=== PATIENT | male | born 1960 | race Hispanic/Latino ===

== ENCOUNTER 2017-05-29 07:36 | Emergency (ER) | payer MEDICAID ==
[2017-05-29] MEDS ORDERED: ACETAMINOPHEN EXTRA STRENGTH 500 MG TABLET ONE (08:05)
[2017-05-29 08:37] LABS: RAPID GROUP A STREP NEGATIVE (NEGATIVE)
== END 2017-05-29 10:35 | disposition home or self-care (01) ==
LOC: EDH 07:36
DX: J11.1 Influenza due to unidentified influenza virus with other respiratory manifestations (principal); M19.90 Unspecified osteoarthritis, unspecified site
CPT/HCPCS: 71046; 87804; 87880

== ENCOUNTER 2017-07-05 13:10 | Emergency (ER) | payer MEDICAID ==
[2017-07-05 13:36] LABS: EOSINOPHILS % (AUTO) 1.6 % (0.0-8.0); HEMATOCRIT 45.3 % (42-54); LYMPHOCYTES % (AUTO) 29.2 % (21.0-51.0); MEAN CORPUSCULAR HGB CONC 34.5 g/dL (32.0-36.0); MEAN CORPUSCULAR VOLUME 84.3 fL (79-99); MONOCYTES % (AUTO) 6.6 % (3.0-13.0); NEUTROPHILS % (AUTO) 61.6 % (40.0-77.0); NUCLEATED RED BLOOD CELLS 0.1 % (0.0-0.19); PLATELET COUNT (AUTO) 161 K/uL (130-400); RED BLOOD CELL COUNT(AUTO) 5.37 MIL/uL (4.50-6.20); RED CELL DISTRIBUTION WIDTH 14.1 % (11.0-15.5); WHITE BLOOD COUNT (AUTO) 6.3 K/uL (4.8-10.8)
[2017-07-05] MEDS ORDERED: IOPAMIDOL-370 75 ML VIAL IV ONE (13:47)
[2017-07-05 14:32] LABS: CARBON DIOXIDE 25 mmol/L (21-32); CHLORIDE 101 mmol/L (101-111); CREATININE 0.8 mg/dL (0.5-1.5); GLOMERULAR FILTR. RATE CALC 106 mL/min (>60); GLUCOSE,RANDOM 181 mg/dL (70-105); POTASSIUM 3.6 mmol/L (3.5-5.1); SODIUM SERUM 137 mmol/L (136-145); UREA NITROGEN, BLOOD 7 mg/dL (7-18)
[2017-07-05 14:45] LABS: ALANINE AMINOTRANSFERASE 51 U/L (12-78); ALBUMIN 3.8 g/dL (3.5-5.0); AMYLASE 31 U/L (25-115); ASPARTATE AMINOTRANSFERASE 23 U/L (10-37); BILIRUBIN,TOTAL 0.3 mg/dL (0.2-1.0); CREATINE KINASE MB < 0.5 ng/mL (0.5-3.6); CREATINE KINASE, TOTAL 120 U/L (21-232); LIPASE 95 U/L (114-286); TOTAL PROTEIN, SERUM 7.5 g/dL (6.0-8.3)
== END 2017-07-05 16:12 | disposition home or self-care (01) ==
LOC: EDH 13:10
DX: R10.84 Generalized abdominal pain (principal); R07.9 Chest pain, unspecified; R51 Headache; M19.90 Unspecified osteoarthritis, unspecified site
CPT/HCPCS: 36415; 70450; 71045; 74177; 80053; 82140; 82150; 82550; 82553; 83690; 84484; 85025; 93005; 99285; Q9967

== ENCOUNTER 2018-04-10 03:21 | Emergency (ER) | payer MEDICAID ==
[2018-04-10 04:57] LABS: BASOPHILS % (AUTO) 1.3 % (0.0-5.0); EOSINOPHILS % (AUTO) 2.4 % (0.0-8.0); HEMATOCRIT 45.4 % (42-54); LYMPHOCYTES % (AUTO) 38.4 % (21.0-51.0); MEAN CORPUSCULAR HEMOGLOBIN 30.3 pg (27.0-33.0); MEAN CORPUSCULAR HGB CONC 33.7 g/dL (32.0-36.0); MEAN CORPUSCULAR VOLUME 89.8 fL (79-99); MONOCYTES % (AUTO) 8.7 % (3.0-13.0); NEUTROPHILS % (AUTO) 49.2 % (40.0-77.0); NUCLEATED RED BLOOD CELLS 0.2 % (0.0-0.19); PLATELET COUNT (AUTO) 183 K/uL (130-400); RED BLOOD CELL COUNT(AUTO) 5.06 MIL/uL (4.50-6.20); RED CELL DISTRIBUTION WIDTH 15.9 % (11.0-15.5); WHITE BLOOD COUNT (AUTO) 4.9 K/uL (4.8-10.8)
[2018-04-10 05:01] LABS: CREATININE 0.5 mg/dL (0.5-1.5); POTASSIUM 3.3 mmol/L (3.5-5.1)
[2018-04-10 05:06] LABS: ALBUMIN 3.2 g/dL (3.5-5.0); BILIRUBIN,TOTAL 0.3 mg/dL (0.2-1.0); TOTAL PROTEIN, SERUM 7.3 g/dL (6.0-8.3)
== END 2018-04-10 07:27 | disposition home or self-care (01) ==
LOC: EDH 03:21
DX: R07.2 Precordial pain (principal); Z72.0 Tobacco use
CPT/HCPCS: 36415; 71045; 80053; 84484; 85025; 93005

== ENCOUNTER 2018-04-18 11:58 | Emergency (ER) | payer MEDICAID ==
[2018-04-18] MEDS ORDERED: ACETAMINOPHEN EXTRA STRENGTH 500 MG TABLET ONE (14:09)
== END 2018-04-18 14:36 | disposition home or self-care (01) ==
LOC: EDH 11:58
DX: S80.02XA Contusion of left knee, initial encounter (principal); J20.9 Acute bronchitis, unspecified; M19.90 Unspecified osteoarthritis, unspecified site; X58.XXXA Exposure to other specified factors, initial encounter; Y93.89 Activity, other specified; Y92.89 Other specified places as the place of occurrence of the external cause; Y99.8 Other external cause status
CPT/HCPCS: 71046; 73562; 93005

== ENCOUNTER 2018-10-19 08:53 | Observation (INO) | payer MEDICAID ==
[~2018-10-19] VITALS: Ht 165.1 cm; Wt 61.0 kg
[2018-10-19 09:14] LABS: BASOPHILS % (AUTO) 0.7 % (0.0-5.0); EOSINOPHILS % (AUTO) 0.2 % (0.0-8.0); HEMATOCRIT 45.4 % (42-54); LYMPHOCYTES % (AUTO) 10.3 % (21.0-51.0); MEAN CORPUSCULAR HEMOGLOBIN 32.7 pg (27.0-33.0); MEAN CORPUSCULAR HGB CONC 33.6 g/dL (32.0-36.0); MEAN CORPUSCULAR VOLUME 97.4 fL (79-99); MONOCYTES % (AUTO) 4.5 % (3.0-13.0); NEUTROPHILS % (AUTO) 84.3 % (40.0-77.0); PLATELET COUNT (AUTO) 206 K/uL (130-400); RED BLOOD CELL COUNT(AUTO) 4.66 MIL/uL (4.50-6.20); RED CELL DISTRIBUTION WIDTH 13.9 % (11.0-15.5); WHITE BLOOD COUNT (AUTO) 7.3 K/uL (4.8-10.8)
[2018-10-19 09:24] LABS: CREATININE 0.8 mg/dL (0.5-1.5); POTASSIUM 3.4 mmol/L (3.5-5.1)
[2018-10-19 09:44] LABS: ALBUMIN 3.5 g/dL (3.5-5.0); BILIRUBIN,TOTAL 0.4 mg/dL (0.2-1.0); TOTAL PROTEIN, SERUM 7.5 g/dL (6.0-8.3)
[2018-10-19] MEDS ORDERED: SODIUM CHLORIDE 0.9% 500ML 500 ML IV ONE (10:19)
[2018-10-19] MEDS ORDERED: ONDANSETRON HCL 4 MG/2 ML VIAL IVP PRN (12:45)
[2018-10-19] MEDS ORDERED: ACETAMINOPHEN 325 MG TAB PO PRN (12:45)
[2018-10-19] MEDS ORDERED: AMOXICILLIN/POTASSIUM CLAV 875-125 TABLET PO SCH (12:45)
[2018-10-19] MEDS ORDERED: NITROGLYCERIN 0.4 MG SL TAB SL PRN (12:45)
[2018-10-19] MEDS ORDERED: BENZONATATE 100 MG CAPSULE PO SCH (14:00)
[2018-10-19] MEDS ORDERED: BENZONATATE 100 MG CAPSULE PO PRN (14:00)
[2018-10-19 15:34] VITALS: BP 121/71
[2018-10-19] MEDS ORDERED: GABA600T10 PO (16:07)
[2018-10-19] MEDS ORDERED: TRAM50TA4 PO (16:07)
[2018-10-19] MEDS: SODIUM CHLORIDE 0.9% 1000ML 1,000 ML IV SCH (16:46)
[2018-10-19 17:59] LABS: CREATINE KINASE, TOTAL 97 U/L (21-232); MYOGLOBIN 28 ng/mL (10-92); TROPONIN I < 0.04 ng/mL (0.00-0.06)
[2018-10-19 19:59] VITALS: BP 122/67
[2018-10-19] MEDS: AMOXICILLIN/POTASSIUM CLAV 875-125 TABLET PO SCH (20:49)
[2018-10-19] MEDS: FAMOTIDINE 20MG TAB 20 MG TAB PO SCH (20:49)
[2018-10-19 23:01] VITALS: BP 114/65
[2018-10-20 01:31] LABS: CREATINE KINASE, TOTAL 81 U/L (21-232); MYOGLOBIN 26 ng/mL (10-92); POTASSIUM 3.4 mmol/L (3.5-5.1); TROPONIN I < 0.04 ng/mL (0.00-0.06)
[2018-10-20 01:32] LABS: CREATININE 0.7 mg/dL (0.5-1.5)
[2018-10-20 01:38] LABS: HEMOGLOBIN A1C 5.4 % (4.0-6.0)
[2018-10-20 03:46] VITALS: BP 123/77
[2018-10-20] MEDS: POTASSIUM CHLORIDE 20 MEQ ERTAB PO SCH ×2 (05:24→20:56)
[2018-10-20] MEDS: SODIUM CHLORIDE 0.9% 1000ML 1,000 ML IV SCH ×2 (06:04→17:44)
--- NOTE | 2018-10-20 06:50 | NUR ---
orders Cxr per Dr Manzanares (hospitalist) consult Dr Sanabria cardiology for possible LHC. Addendum: 10/20/18 at 0806 by PHU MULTANI RN RN Disregard Cardiology consult
[2018-10-20 07:49] VITALS: BP 133/82
[2018-10-20] MEDS ORDERED: POTASSIUM CHLORIDE 20 MEQ ERTAB PO SCH ×2 (09:00)
[2018-10-20] MEDS ORDERED: ENOXAPARIN SODIUM 30 MG/0.3 ML SQ SCH (09:00)
[2018-10-20] MEDS: AMOXICILLIN/POTASSIUM CLAV 875-125 TABLET PO SCH ×2 (11:00→20:56)
[2018-10-20] MEDS: FAMOTIDINE 20MG TAB 20 MG TAB PO SCH ×2 (11:00→20:56)
[2018-10-20 11:30] VITALS: BP 135/76
--- NOTE | 2018-10-20 11:41 | NUR ---
DC Sw met with pt who lives alone, mother Rosemary Kaufman [phone] and friend Elodia Steinberg [phone] are ER contacts. Pt has provider 2hrs a day thru [facility], attends [facility] daily,uses crutch. no services. denies dc needs, He is seen at [facility] by Dr Graff. plan is home with current services Addendum: 10/20/18 at 1144 by REJI OAKLEY SS Amended: Links added.
[2018-10-20 15:30] VITALS: BP 141/78
[2018-10-20 20:00] VITALS: BP 145/80
[2018-10-20] MEDS: MORPHINE SULFATE 4 MG/1ML SYG IV PRN (21:01)
[2018-10-20 23:52] VITALS: BP 144/79
[2018-10-21] MEDS: MORPHINE SULFATE 4 MG/1ML SYG IV PRN (01:01)
[2018-10-21] MEDS: SODIUM CHLORIDE 0.9% 1000ML 1,000 ML IV SCH (02:05)
[2018-10-21 03:36] VITALS: BP 130/75
[2018-10-21 03:55] LABS: BASOPHILS % (AUTO) 1.3 % (0.0-5.0); EOSINOPHILS % (AUTO) 2.3 % (0.0-8.0); HEMATOCRIT 42.7 % (42-54); LYMPHOCYTES % (AUTO) 35.6 % (21.0-51.0); MEAN CORPUSCULAR HGB CONC 34.8 g/dL (32.0-36.0); MEAN CORPUSCULAR VOLUME 94.8 fL (79-99); NEUTROPHILS % (AUTO) 52.8 % (40.0-77.0); PLATELET COUNT (AUTO) 225 K/uL (130-400); RED BLOOD CELL COUNT(AUTO) 4.51 MIL/uL (4.50-6.20); WHITE BLOOD COUNT (AUTO) 5.4 K/uL (4.8-10.8)
[2018-10-21 03:59] LABS: ALBUMIN 3.2 g/dL (3.5-5.0); BILIRUBIN,TOTAL 0.6 mg/dL (0.2-1.0); CREATININE 0.8 mg/dL (0.5-1.5); POTASSIUM 3.8 mmol/L (3.5-5.1); TOTAL PROTEIN, SERUM 6.9 g/dL (6.0-8.3)
[2018-10-21 07:18] VITALS: BP 136/84
--- NOTE | 2018-10-21 07:30 | NUR ---
ASSESSMENT ENCOUNTERED PT A&OX3, CALM COOPERATIVE AND DOES NOT APPEAR TO BE IN ANY DISTRESS NOR ANY NEURO DEFICITS PRESENT. PT DENIES PAIN, SOB, NAUSEA. PT IS AMBULATORY, GAIT STEADY AND STRONG WITH STAND BY ASSIST. CALL LIGHT WITHIN REACH.
[2018-10-21] MEDS: AMOXICILLIN/POTASSIUM CLAV 875-125 TABLET PO SCH (10:16)
[2018-10-21] MEDS: FAMOTIDINE 20MG TAB 20 MG TAB PO SCH (10:16)
--- NOTE | 2018-10-21 14:00 | NUR ---
DISCHARGE INSTRUCTIONS GIVEN, PIV REMOVED AND INTACT, DISCHARGED HOME TO FAMILY VEHICLE VIA WHEELCHAIR.
== END 2018-10-21 13:17 | disposition home or self-care (01) ==
LOC: EDH 08:53 → INTOOBSV 08:54 → EDHIP 08:54 → 2AH 14:36 → 2DH 14:45
PROVIDERS: ADMIT Family Medicine; ATTEND Family Medicine
DX: R07.89 Other chest pain (principal); E87.6 Hypokalemia; R11.0 Nausea; M19.90 Unspecified osteoarthritis, unspecified site; G89.29 Other chronic pain; M54.9 Dorsalgia, unspecified; Z87.891 Personal history of nicotine dependence; Z59.0 Homelessness; Z79.899 Other long term (current) drug therapy
CPT/HCPCS: 36415 ×3; 71045 ×2; 80048; 80053 ×2; 80061; 82550 ×3; 83036; 83690; 83874 ×2; 84484 ×3; 85025 ×2; 87071; 87205; 93005; 96372; 96374; 96376; 99284; G0378 ×49; J1650; J2270 ×2; J7030 ×2; J7040

== ENCOUNTER 2018-12-16 19:52 | Emergency (ER) | payer MEDICAID ==
[~2018-12-16 19:52] MED LIST: GABA600T10 PO; TRAM50TA4 PO
[2018-12-16] MEDS ORDERED: SODIUM CHLORIDE 0.9% 1000ML 1,000 ML IV ONE (20:51)
[2018-12-16] MEDS ORDERED: ONDANSETRON HCL 4 MG/2 ML VIAL ONE (20:51)
== END 2018-12-16 23:24 | disposition home or self-care (01) ==
LOC: EDH 19:52
DX: S09.90XA Unspecified injury of head, initial encounter (principal); F10.129 Alcohol abuse with intoxication, unspecified; R42 Dizziness and giddiness; M19.90 Unspecified osteoarthritis, unspecified site; G89.29 Other chronic pain; M54.9 Dorsalgia, unspecified; Z90.49 Acquired absence of other specified parts of digestive tract; W07.XXXA Fall from chair, initial encounter; Y93.89 Activity, other specified; Y92.89 Other specified places as the place of occurrence of the external cause; Y99.8 Other external cause status
CPT/HCPCS: 70450; 72125; 82948; 96361; 96374; 99284; J2405; J7030

== ENCOUNTER 2019-05-18 19:51 | Emergency (ER) | payer MEDICAID ==
[2019-05-18] MEDS ORDERED: ACETAMINOPHEN 325 MG TAB ONE (22:00)
== END 2019-05-18 22:08 | disposition home or self-care (01) ==
LOC: EDH 19:51
DX: S00.83XA Contusion of other part of head, initial encounter (principal); M19.90 Unspecified osteoarthritis, unspecified site; G89.29 Other chronic pain; M54.9 Dorsalgia, unspecified; Z90.49 Acquired absence of other specified parts of digestive tract; W22.8XXA Striking against or struck by other objects, initial encounter; Y93.89 Activity, other specified; Y92.89 Other specified places as the place of occurrence of the external cause; Y99.8 Other external cause status
CPT/HCPCS: 70450; 70486

== ENCOUNTER 2019-07-02 04:32 | Emergency (ER) | payer MEDICAID ==
[2019-07-02] MEDS ORDERED: ACETAMINOPHEN 325 MG TAB ONE (04:56)
[2019-07-02] MEDS ORDERED: TETANUS/DIPHTHERIA TOXOID [ADULT] 0.5 ML VIAL IM ONE (04:56)
== END 2019-07-02 05:42 | disposition home or self-care (01) ==
LOC: EDH 04:32
DX: S70.311A Abrasion, right thigh, initial encounter (principal); M19.90 Unspecified osteoarthritis, unspecified site; G89.29 Other chronic pain; Z90.49 Acquired absence of other specified parts of digestive tract; W54.0XXA Bitten by dog, initial encounter; Y93.89 Activity, other specified; Y92.89 Other specified places as the place of occurrence of the external cause; Y99.8 Other external cause status
CPT/HCPCS: 90471; 90714

== ENCOUNTER 2019-07-22 00:09 | Emergency (ER) | payer MEDICAID ==
[2019-07-22] MEDS ORDERED: SODIUM CHLORIDE IRRIG SOLUTION 1,000 ML IR ONE (00:10)
[2019-07-22] MEDS ORDERED: TETANUS/DIPHTHERIA TOXOID [ADULT] 0.5 ML VIAL IM ONE (00:27)
[2019-07-22 01:13] LABS: BASOPHILS % (AUTO) 1.5 % (0.0-5.0); EOSINOPHILS % (AUTO) 2.5 % (0.0-8.0); LYMPHOCYTES % (AUTO) 37.1 % (21.0-51.0); MEAN CORPUSCULAR HEMOGLOBIN 33.1 pg (27.0-33.0); MEAN CORPUSCULAR HGB CONC 35.4 g/dL (32.0-36.0); MEAN CORPUSCULAR VOLUME 93.5 fL (79-99); MONOCYTES % (AUTO) 8.9 % (3.0-13.0); NEUTROPHILS % (AUTO) 49.8 % (40.0-77.0); PLATELET COUNT (AUTO) 183 K/uL (130-400); RED BLOOD CELL COUNT(AUTO) 4.17 MIL/uL (4.50-6.20); RED CELL DISTRIBUTION WIDTH 13.8 % (11.0-15.5); WHITE BLOOD COUNT (AUTO) 5.3 K/uL (4.8-10.8)
[2019-07-22 01:28] LABS: CREATININE 0.6 mg/dL (0.5-1.5); POTASSIUM 3.1 mmol/L (3.5-5.1)
== END 2019-07-22 08:08 | disposition home or self-care (01) ==
LOC: EDH 00:09
DX: S80.01XA Contusion of right knee, initial encounter (principal); S60.221A Contusion of right hand, initial encounter; M19.90 Unspecified osteoarthritis, unspecified site; G89.29 Other chronic pain; W18.39XA Other fall on same level, initial encounter; Y93.89 Activity, other specified; Y92.89 Other specified places as the place of occurrence of the external cause; Y99.8 Other external cause status
CPT/HCPCS: 29125; 36415; 73110; 73130; 73562; 80048; 85025; 90471; 90714; 99284; G0480 ×2

== ENCOUNTER 2019-11-15 23:11 | Emergency (ER) | payer MEDICAID ==
[2019-11-15] MEDS ORDERED: SODIUM CHLORIDE 0.9% 1000ML 1,000 ML IV ONE (23:12)
== END 2019-11-16 05:32 | disposition home or self-care (01) ==
LOC: EDH 23:11
DX: F10.129 Alcohol abuse with intoxication, unspecified (principal); G89.29 Other chronic pain; M19.90 Unspecified osteoarthritis, unspecified site; Z90.49 Acquired absence of other specified parts of digestive tract; Z72.0 Tobacco use
CPT/HCPCS: 36415 ×2; 71045; 80053; 80305; 81003; 82550; 83690; 84484 ×2; 85025; 85610; 85730; 93005; 96360; 96361; 99285; J7030

== ENCOUNTER 2020-02-27 14:59 | Emergency (ER) | payer MEDICAID ==
[2020-02-27 15:56] LABS: BASOPHILS % (AUTO) 0.4 % (0.0-5.0); EOSINOPHILS % (AUTO) 1.5 % (0.0-8.0); LYMPHOCYTES % (AUTO) 15.2 % (21.0-51.0); MEAN CORPUSCULAR HGB CONC 35.2 g/dL (32.0-36.0); MEAN CORPUSCULAR VOLUME 87.9 fL (79-99); MONOCYTES % (AUTO) 7.5 % (3.0-13.0); PLATELET COUNT (AUTO) 134 K/uL (130-400); RED BLOOD CELL COUNT(AUTO) 4.78 MIL/uL (4.50-6.20); RED CELL DISTRIBUTION WIDTH 12.3 % (11.0-15.5); WHITE BLOOD COUNT (AUTO) 5.3 K/uL (4.8-10.8)
[2020-02-27 16:10] LABS: CARBON DIOXIDE 26 mmol/L (21-32); CHLORIDE 98 mmol/L (101-111); GLOMERULAR FILTR. RATE CALC 81 mL/min (>60); GLUCOSE,RANDOM 139 mg/dL (70-105); POTASSIUM 3.2 mmol/L (3.5-5.1); SODIUM SERUM 129 mmol/L (136-145); UREA NITROGEN, BLOOD 12 mg/dL (7-18)
[2020-02-27 16:11] LABS: B-TYPE NATRIURETIC PEPTIDE 8 pg/mL (0-100)
[2020-02-27 16:14] LABS: ALANINE AMINOTRANSFERASE 28 U/L (12-78); ALBUMIN 3.6 g/dL (3.5-5.0); AMYLASE 26 U/L (25-115); ASPARTATE AMINOTRANSFERASE 17 U/L (10-37); BILIRUBIN,TOTAL 0.6 mg/dL (0.2-1.0); CREATINE KINASE, TOTAL 64 U/L (21-232); TOTAL PROTEIN, SERUM 7.2 g/dL (6.0-8.3)
[2020-02-27 16:15] LABS: LIPASE < 50 U/L (114-286)
[2020-02-27 16:57] LABS: APPEARANCE,URINE Clear (CLEAR); BILIRUBIN,URINE Small (NEGATIVE); COLOR,URINE Dark Yellow (YELLOW); GLUCOSE, URINE (UA) Negative (NEGATIVE); KETONES,URINE Negative (NEGATIVE); LEUKOCYTE ESTERASE ,URINE Negative (NEGATIVE); NITRATE,URINE Negative (NEGATIVE); OCCULT BLOOD,URINE Negative (NEGATIVE); PH,URINE 5.5 (5.0-8.0); PROTEIN,URINE Trace mg/dL (NEGATIVE)
[2020-02-27 17:04] LABS: AMPHET/METH SCREEN,URINE NEGATIVE (NEGATIVE); BARBITURATE SCREEN, URINE NEGATIVE (NEGATIVE); BENZODIAZEPINES SCREEN,URINE NEGATIVE (NEGATIVE); CANNABINOID SCREEN,URINE NEGATIVE (NEGATIVE); COCAINE SCREEN,URINE NEGATIVE (NEGATIVE); OPIATE SCREEN,URINE NEGATIVE (NEGATIVE); PHENCYCLIDINE SCREEN,URINE NEGATIVE (NEGATIVE)
[2020-02-27 17:06] LABS: BACTERIA,URINE Rare /HPF (None Seen); MUCUS,URINE Moderate LPF (None Seen); SQUAMOUS EPITHELIAL CELL,UR Few /HPF (0-2); WBC,URINE 0-1 /HPF (0-1)
[2020-02-27] MEDS ORDERED: POTASSIUM CHLORIDE 20 MEQ ERTAB PO ONE (17:35)
== END 2020-02-27 18:08 | disposition home or self-care (01) ==
LOC: EDH 14:59
DX: E87.6 Hypokalemia (principal); R10.30 Lower abdominal pain, unspecified; M06.9 Rheumatoid arthritis, unspecified; R10.13 Epigastric pain; G89.29 Other chronic pain; M54.5 Low back pain; M19.90 Unspecified osteoarthritis, unspecified site; Z90.49 Acquired absence of other specified parts of digestive tract
CPT/HCPCS: 36415; 80053; 80305; 81001; 82150; 82550; 83690; 83880; 84484; 85025; 93005

== ENCOUNTER 2020-06-22 18:52 | Emergency (ER) | payer MEDICAID ==
[2020-06-22 20:00] LABS: APPEARANCE,URINE Cloudy (CLEAR); BILIRUBIN,URINE Negative (NEGATIVE); COLOR,URINE Yellow (YELLOW); GLUCOSE, URINE (UA) Negative (NEGATIVE); KETONES,URINE Negative (NEGATIVE); LEUKOCYTE ESTERASE ,URINE Negative (NEGATIVE); NITRATE,URINE Negative (NEGATIVE); OCCULT BLOOD,URINE Negative (NEGATIVE); PROTEIN,URINE Negative (NEGATIVE)
[2020-06-22 20:02] LABS: BASOPHILS % (AUTO) 0.9 % (0.0-5.0); EOSINOPHILS % (AUTO) 1.1 % (0.0-8.0); HEMATOCRIT 44.3 % (42-54); MEAN CORPUSCULAR HEMOGLOBIN 29.2 pg (27.0-33.0); MEAN CORPUSCULAR HGB CONC 34.3 g/dL (32.0-36.0); MONOCYTES % (AUTO) 11.4 % (3.0-13.0); NEUTROPHILS % (AUTO) 69.2 % (40.0-77.0); PLATELET COUNT (AUTO) 143 K/uL (130-400); RED BLOOD CELL COUNT(AUTO) 5.21 MIL/uL (4.50-6.20); RED CELL DISTRIBUTION WIDTH 12.1 % (11.0-15.5); WHITE BLOOD COUNT (AUTO) 5.7 K/uL (4.8-10.8)
[2020-06-22 20:13] LABS: CREATININE 0.7 mg/dL (0.5-1.5); POTASSIUM 3.5 mmol/L (3.5-5.1)
[2020-06-22 20:17] LABS: BILIRUBIN,TOTAL 0.5 mg/dL (0.2-1.0); TOTAL PROTEIN, SERUM 7.7 g/dL (6.0-8.3)
[2020-06-22 20:21] LABS: AMORPHOUS SEDIMENT,UR Moderate /LPF (None Seen); BACTERIA,URINE Few /HPF (None Seen); MUCUS,URINE Rare LPF (None Seen); RBC,URINE 0-1 /HPF (0-1); SQUAMOUS EPITHELIAL CELL,UR Rare /HPF (0-2); WBC,URINE 0-1 /HPF (0-1)
[2020-06-22] MEDS ORDERED: IBUPROFEN 400 MG TABLET ONE (21:12)
[2020-06-22] MEDS ORDERED: ACETAMINOPHEN EXTRA STRENGTH 500 MG TABLET ONE (21:12)
== END 2020-06-22 21:24 | disposition home or self-care (01) ==
LOC: EDH 18:52
DX: R50.83 Postvaccination fever (principal); T50.B95A Adverse effect of other viral vaccines, initial encounter; M79.10 Myalgia, unspecified site; Z20.822 Contact with and (suspected) exposure to COVID-19; M19.90 Unspecified osteoarthritis, unspecified site; G89.29 Other chronic pain; M54.9 Dorsalgia, unspecified; Z90.49 Acquired absence of other specified parts of digestive tract; Z87.891 Personal history of nicotine dependence
CPT/HCPCS: 36415; 71045; 80053; 81001; 81003; 84484; 85025; 87426; 99284; U0003

== ENCOUNTER 2022-07-12 20:33 | Emergency (ER) | payer MEDICAID ==
[~2022-07-12] VITALS: Ht 165.1 cm; Wt 71.7 kg
[2022-07-12 21:49] LABS: BASOPHILS % (AUTO) 0.7 % (0.0-5.0); EOSINOPHILS % (AUTO) 0.5 % (0.0-8.0); HEMATOCRIT 46.5 % (42-54); MEAN CORPUSCULAR HEMOGLOBIN 29.3 pg (27.0-33.0); MEAN CORPUSCULAR HGB CONC 34.2 g/dL (32.0-36.0); MEAN CORPUSCULAR VOLUME 85.8 fL (79-99); MONOCYTES % (AUTO) 7.2 % (3.0-13.0); NEUTROPHILS % (AUTO) 76.9 % (40.0-77.0); PLATELET COUNT (AUTO) 206 K/uL (130-400); RED BLOOD CELL COUNT(AUTO) 5.42 MIL/uL (4.50-6.20); RED CELL DISTRIBUTION WIDTH 12.9 % (11.0-15.5); WHITE BLOOD COUNT (AUTO) 13.3 K/uL (4.8-10.8)
[2022-07-12 22:01] LABS: CREATININE 0.9 mg/dL (0.5-1.5); POTASSIUM 3.7 mmol/L (3.5-5.1)
[2022-07-12 22:11] LABS: ALBUMIN 4.5 g/dL (3.5-5.0)
[2022-07-12] MEDS ORDERED: 0.9%NACL 1000ML 1,000 ML IV ONE (23:30)
[2022-07-12] MEDS ORDERED: ONDANSETRON 4MG INJ IVP ONE (23:30)
[2022-07-13 01:06] LABS: APPEARANCE,URINE CLEAR (CLEAR); BILIRUBIN,URINE NEGATIVE (NEGATIVE); COLOR,URINE YELLOW (YELLOW); GLUCOSE, URINE (UA) NEGATIVE (NEGATIVE); KETONES,URINE 20 mg/dL (NEGATIVE); LEUKOCYTE ESTERASE ,URINE NEGATIVE Leu/uL (NEGATIVE); NITRATE,URINE NEGATIVE (NEGATIVE); OCCULT BLOOD,URINE NEGATIVE (NEGATIVE); PH,URINE 5.5 (5.0-8.0); PROTEIN,URINE 10 mg/dL (NEGATIVE); UROBILINOGEN,URINE 0.2 mg/dL (0.2-1.0)
[2022-07-13 02:04] VITALS: BP 98/42
== END 2022-07-13 02:27 | disposition home or self-care (01) ==
LOC: EDH 20:33
DX: E86.0 Dehydration (principal); R53.1 Weakness; M19.90 Unspecified osteoarthritis, unspecified site; E11.9 Type 2 diabetes mellitus without complications; Z90.49 Acquired absence of other specified parts of digestive tract
CPT/HCPCS: 99284; 96374; 96361; 84484; 80053; 83690; 85025; 81003; 36415; 51702; 93005; J7030; J2405

== ENCOUNTER 2023-08-06 08:42 | Emergency (ER) | payer MEDICAID ==
[~2023-08-06] VITALS: Ht 165.1 cm; Wt 71.7 kg
[2023-08-06 09:26] VITALS: BP 156/72; PULSE 75; RESP 16; O2SAT 98
[2023-08-06] MEDS: ONDANSETRON 4MG INJ IVP ONE (09:32)
[2023-08-06] MEDS: FAMOTIDINE 20MG VIAL IV ONE (09:32)
[2023-08-06 09:34] LABS: BASOPHILS # (AUTO) 0.06 K/uL (0.00-0.20); EOSINOPHILS # (AUTO) 0.05 K/uL (0.00-0.70); EOSINOPHILS % (AUTO) 0.8 % (0.0-8.0); HEMATOCRIT 42.9 % (42-54); IMMATURE GRANULOCYTE ABSOLUTE 0.03 K/uL (0-1); LYMPHOCYTES # (AUTO) 1.6 K/uL (1.0-4.8); LYMPHOCYTES % (AUTO) 25.6 % (21.0-51.0); MEAN CORPUSCULAR HEMOGLOBIN 29.6 pg (27.0-33.0); MEAN CORPUSCULAR VOLUME 84.8 fL (79-99); MONOCYTES # (AUTO) 0.5 K/uL (0.1-1.0); MONOCYTES % (AUTO) 7.6 % (3.0-13.0); NEUTROPHILS % (AUTO) 64.5 % (40.0-77.0); PLATELET COUNT (AUTO) 195 K/uL (130-400); RED BLOOD CELL COUNT(AUTO) 5.06 MIL/uL (4.50-6.20); RED CELL DISTRIBUTION WIDTH 12.8 % (11.0-15.5); WHITE BLOOD COUNT (AUTO) 6.2 K/uL (4.8-10.8)
[2023-08-06 09:44] LABS: APPEARANCE,URINE CLEAR (CLEAR); BILIRUBIN,URINE NEGATIVE (NEGATIVE); COLOR,URINE LIGHT-YELLOW (YELLOW); GLUCOSE, URINE (UA) NEGATIVE (NEGATIVE); KETONES,URINE NEGATIVE (NEGATIVE); LEUKOCYTE ESTERASE ,URINE NEGATIVE Leu/uL (NEGATIVE); NITRATE,URINE NEGATIVE (NEGATIVE); OCCULT BLOOD,URINE NEGATIVE (NEGATIVE); PROTEIN,URINE NEGATIVE (NEGATIVE)
[2023-08-06 09:47] LABS: CREATININE 0.8 mg/dL (0.5-1.3); POTASSIUM 3.7 mmol/L (3.5-5.1)
[2023-08-06 09:51] LABS: ALBUMIN 4.1 g/dL (3.5-5.0); BILIRUBIN,TOTAL 0.7 mg/dL (0.2-1.0); TOTAL PROTEIN, SERUM 7.5 g/dL (6.0-8.3)
[2023-08-06 10:26] LABS: RBC,URINE None Seen /HPF (0-1); WBC,URINE None Seen /HPF (0-1)
[2023-08-06 10:27] LABS: BACTERIA,URINE None Seen /HPF (None Seen)
== END 2023-08-06 10:18 | disposition home or self-care (01) ==
LOC: EDH 08:42
DX: K29.70 Gastritis, unspecified, without bleeding (principal); E11.9 Type 2 diabetes mellitus without complications; I10 Essential (primary) hypertension; E78.00 Pure hypercholesterolemia, unspecified; M19.90 Unspecified osteoarthritis, unspecified site; Z90.49 Acquired absence of other specified parts of digestive tract; Z79.899 Other long term (current) drug therapy; Z98.890 Other specified postprocedural states
CPT/HCPCS: 99284; 96374; 96375; 84484; 80053; 83690; 85025; 81001; 36415; 93005; J2405; S0028; J3490

== ENCOUNTER 2023-09-09 08:16 | Emergency (ER) | payer MEDICAID ==
[~2023-09-09] VITALS: Ht 165.1 cm; Wt 71.2 kg
[2023-09-09 09:20] LABS: BASOPHILS # (AUTO) 0.07 K/uL (0.00-0.20); EOSINOPHILS # (AUTO) 0.08 K/uL (0.00-0.70); EOSINOPHILS % (AUTO) 1.1 % (0.0-8.0); HEMATOCRIT 46.5 % (42-54); IMMATURE GRANULOCYTE ABSOLUTE 0.02 K/uL (0-1); LYMPHOCYTES # (AUTO) 2.1 K/uL (1.0-4.8); MEAN CORPUSCULAR HEMOGLOBIN 29.2 pg (27.0-33.0); MEAN CORPUSCULAR HGB CONC 34.4 g/dL (32.0-36.0); MEAN CORPUSCULAR VOLUME 84.9 fL (79-99); MONOCYTES # (AUTO) 0.5 K/uL (0.1-1.0); MONOCYTES % (AUTO) 7.3 % (3.0-13.0); NEUTROPHILS # (AUTO) 4.4 K/uL (1.8-7.7); NEUTROPHILS % (AUTO) 61.3 % (40.0-77.0); PLATELET COUNT (AUTO) 191 K/uL (130-400); RED BLOOD CELL COUNT(AUTO) 5.48 MIL/uL (4.50-6.20); WHITE BLOOD COUNT (AUTO) 7.1 K/uL (4.8-10.8)
[2023-09-09] MEDS: ONDANSETRON 4MG INJ IVP ONE (09:23)
[2023-09-09] MEDS: LACTATED RINGERS 1000ML 1,000 ML IV ONE (09:23)
[2023-09-09 09:40] LABS: INR <= 0.93 (0.85-1.15); PROTHROMBIN TIME 10.7 SEC (9.6-11.6)
[2023-09-09 09:47] LABS: CREATININE 0.8 mg/dL (0.5-1.3); MAGNESIUM 1.9 mg/dL (1.80-2.40); POTASSIUM 3.8 mmol/L (3.5-5.1)
[2023-09-09 10:17] LABS: B-TYPE NATRIURETIC PEPTIDE < 5 pg/mL (0-100)
[2023-09-09 11:02] LABS: APPEARANCE,URINE CLEAR (CLEAR); BILIRUBIN,URINE NEGATIVE (NEGATIVE); COLOR,URINE LIGHT-YELLOW (YELLOW); GLUCOSE, URINE (UA) 30 mg/dL (NEGATIVE); KETONES,URINE NEGATIVE (NEGATIVE); LEUKOCYTE ESTERASE ,URINE NEGATIVE Leu/uL (NEGATIVE); NITRATE,URINE NEGATIVE (NEGATIVE); OCCULT BLOOD,URINE NEGATIVE (NEGATIVE); PH,URINE 7.5 (5.0-8.0); PROTEIN,URINE NEGATIVE (NEGATIVE); UROBILINOGEN,URINE 3 mg/dL (0.2-1.0)
[2023-09-09 11:03] LABS: ADD UA MICROSCOPIC YES
[2023-09-09 11:05] LABS: MUCUS,URINE RARE LPF (None Seen); RBC,URINE 0-1 /HPF (0-1); SQUAMOUS EPITHELIAL CELL,UR RARE /HPF (0-2); WBC,URINE 0-1 /HPF (0-1)
[2023-09-09 11:49] VITALS: BP 160/90; PULSE 64; RESP 16; O2SAT 99
== END 2023-09-09 11:49 | disposition home or self-care (01) ==
LOC: EDH 08:16
DX: E86.0 Dehydration (principal); E11.9 Type 2 diabetes mellitus without complications; E78.00 Pure hypercholesterolemia, unspecified; M19.90 Unspecified osteoarthritis, unspecified site; Z90.49 Acquired absence of other specified parts of digestive tract
CPT/HCPCS: 99285; 96374; 70450; 96361; 71045; 82270; 83735; 84484; 80048; 83880; 85025; 85610; 81001; 36415; 93005; J7120; J2405